=== PATIENT | male | born 1990 | race Caucasian/White ===

== ENCOUNTER 2019-09-09 21:35 | Emergency (ER) | payer MEDICAID ==
[~2019-09-09] VITALS: Ht 170.2 cm; Wt 68.2 kg
[~2019-09-09 21:35] MED LIST: BACDS PO; BENZ1LOZ2 PO; CYCL-1 PO; HYDR1TAB PO; NO HOME MEDS; PERM59LI4 TP; PRED20TA PO; QUET-1 PO; SERT25TA PO; SERT50TA PO
[2019-09-09 21:36] VITALS: BP 103/70
[2019-09-09] MEDS ORDERED: SUMAtriptan succ. 6 MG/0.5ml vial SQ ONE (22:15)
[2019-09-09] MEDS ORDERED: ketorolac trometh inj. 60 MG/2 ML VIAL IM ONE (22:15)
[2019-09-09] MEDS ORDERED: acetaminophen 325mg tablet PO ONE (22:15)
[2019-09-09] MEDS ORDERED: proCHLORperazine 10 MG/2 ml inj IM ONE (22:15)
[2019-09-09] MEDS ORDERED: QUET300T2 PO (22:16)
== END 2019-09-09 22:30 | disposition home or self-care (01) ==
LOC: ER 21:36
DX: G43.909 Migraine, unspecified, not intractable, without status migrainosus (principal); Z76.0 Encounter for issue of repeat prescription; F12.90 Cannabis use, unspecified, uncomplicated; F15.90 Other stimulant use, unspecified, uncomplicated; Z88.6 Allergy status to analgesic agent; Z79.899 Other long term (current) drug therapy
CPT/HCPCS: 96372; 99283; J0780; J1885; J3030

== ENCOUNTER 2019-09-10 18:51 | Emergency (ER) | payer MEDICAID ==
[~2019-09-10] VITALS: Ht 167.6 cm; Wt 65.0 kg
[~2019-09-10 18:51] MED LIST changes: +QUET300T2 PO
[2019-09-10 19:00] VITALS: BP 110/59
--- NOTE | 2019-09-10 19:30 | NUR ---
THE WOMAN THAT IS WITH THE PATIENT CAME WALKING QUICKLY OUT OF THE ROOM AND SAID "HOW DO WE GET OUT, WE'RE GOING TO [facility] WHERE WE CAN RECEIVE DESCENT TREATMENT" SHE SAID A FEW MORE THINGS UNDER HER BREATH. NOW THE PATIENT DOESN'T APPEAR TO BE IN ANY DISTRESS, HE IS PINK IN COLOR AND WALKING JUST QUICKLY SHE IS ACROSS THE TEE TO THE EXIT.
== END 2019-09-10 19:35 | disposition left against medical advice (07) ==
LOC: ER 18:51
DX: G43.909 Migraine, unspecified, not intractable, without status migrainosus (principal); R04.0 Epistaxis; F32.9 Major depressive disorder, single episode, unspecified; F20.9 Schizophrenia, unspecified; F12.90 Cannabis use, unspecified, uncomplicated; F15.90 Other stimulant use, unspecified, uncomplicated; F10.99 Alcohol use, unspecified with unspecified alcohol-induced disorder; Z88.6 Allergy status to analgesic agent; Z79.899 Other long term (current) drug therapy; Y90.9 Presence of alcohol in blood, level not specified
CPT/HCPCS: 99281

== ENCOUNTER 2019-09-26 11:23 | Emergency (ER) | payer MEDICAID ==
[~2019-09-26] VITALS: Ht 167.6 cm; Wt 60.9 kg
[2019-09-26 12:08] LABS: BASOPHILS # (AUTO) 0.1 X10'3 (0-0.2); BASOPHILS % (AUTO) 0.5 % (0-1); EOSINOPHILS % (AUTO) 0.2 % (0-6); HEMATOCRIT 44.4 % (42.0-52.0); HEMOGLOBIN 15.3 g/dl (14.0-17.9); LYMPHOCYTES # (AUTO) 1.4 X10'3 (1.1-4.8); LYMPHOCYTES % (AUTO) 11.8 % (21-51); MEAN CORPUSCULAR HEMOGLOBIN 33.6 PG (27.0-31.0); MEAN CORPUSCULAR HGB CONC 34.4 g/dL (33.0-36.5); MEAN CORPUSCULAR VOLUME 97.6 FL (78-98); MEAN PLATELET VOLUME 7.8 FL (7.4-10.4); MONOCYTES # (AUTO) 0.7 X10'3 (0-0.9); MONOCYTES % (AUTO) 5.9 % (2-12); NEUTROPHILS # (AUTO) 9.5 X10'3 (1.8-7.7); NEUTROPHILS % (AUTO) 81.6 % (42-75); PLATELET COUNT 244 X10'3 (140-440); RED BLOOD COUNT 4.55 X10'6 (4.70-6.10); RED CELL DISTRIBUTION WIDTH 14.2 % (11.5-14.5); WHITE BLOOD COUNT 11.6 X10'3 (4.5-11.0)
[2019-09-26 12:09] LABS: CLARITY,URINE CLEAR (Clear); COLOR,URINE YELLOW (Yellow); GLUCOSE, URINE NEGATIVE (Neg); KETONES,URINE NEGATIVE (Neg); LEUKOCYTE ESTERASE ,URINE NEGATIVE (Neg); NITRITES, URINE NEGATIVE (Neg); OCCULT BLOOD,URINE NEGATIVE (Neg); PROTEIN,URINE TRACE mg/dl (Neg); UROBILINOGEN,URINE 0.2 E.U/dL (0.2-1.0)
[2019-09-26 12:16] LABS: UA COLLECTION TYPE CLN CATCH MIDSTREAM
[2019-09-26 12:24] LABS: ALANINE AMINOTRANSFERASE 23 U/L (12-78); ALBUMIN 4.6 G/DL (3.4-5.0); ALBUMIN/GLOBULIN RATIO 1.3 (1.1-1.5); ALKALINE PHOSPHATASE 70 IU/L (46-116); ANION GAP 6 (8-16); ASPARTATE AMINO TRANSFERASE 17 U/L (10-37); BILIRUBIN,TOTAL 0.3 MG/DL (0.1-1.0); BLOOD UREA NITROGEN 11 MG/DL (7-18); BUN/CREATININE RATIO 10.8 (5.4-32.0); CALCIUM 8.9 MG/DL (8.5-10.1); CHLORIDE 103 MMOL/L (99-107); CREATININE 1.02 MG/DL (0.60-1.10); GLUCOSE 123 MG/DL (70-104); LIPASE 69 U/L (73-393); POTASSIUM 3.6 MMOL/L (3.5-5.1); SODIUM 139 MMOL/L (135-145); TOTAL CARBON DIOXIDE 30.2 MMOL/L (24-32); TOTAL PROTEIN 8.1 G/DL (6.4-8.2); eGFR 88 ML/MIN
[2019-09-26 12:26] LABS: BACTERIA,URINE NONE SEEN /HPF (Neg); MUCUS STRANDS FEW /LPF (Neg); RBC,URINE NONE SEEN /HPF (0-2); SQUAMOUS EPITHELIAL CELL,UR FEW /LPF (FEW); WBC,URINE 0-4 /HPF (0-4)
[2019-09-26] MEDS ORDERED: ONDA4TAB6 PO (13:21)
[2019-09-26 13:24] VITALS: BP 126/76
[2019-09-26] MEDS ORDERED: ondansetron 4mg rapidly disintigrating tab PO ONE (13:25)
== END 2019-09-26 13:43 | disposition home or self-care (01) ==
LOC: ER 11:24
DX: K52.9 Noninfective gastroenteritis and colitis, unspecified (principal); G43.909 Migraine, unspecified, not intractable, without status migrainosus; F32.9 Major depressive disorder, single episode, unspecified; F20.9 Schizophrenia, unspecified; F10.99 Alcohol use, unspecified with unspecified alcohol-induced disorder; F12.90 Cannabis use, unspecified, uncomplicated; F15.90 Other stimulant use, unspecified, uncomplicated; Z88.6 Allergy status to analgesic agent; Z79.899 Other long term (current) drug therapy; Y90.9 Presence of alcohol in blood, level not specified
CPT/HCPCS: 36415; 80053; 81001; 83690; 85025; 99283